=== PATIENT | female | born 1955 | race Caucasian/White ===

== ENCOUNTER 2019-10-10 13:51 | Emergency (ER) | payer OTHER ==
[~2019-10-10] VITALS: Ht 162.6 cm; Wt 90.9 kg
[2019-10-10 14:09] VITALS: BP 170/74
[2019-10-10] MEDS ORDERED: VITAMINC1000TA (16:13)
[2019-10-10] MEDS ORDERED: ALAVERT10 M1 PO (16:13)
[2019-10-10] MEDS ORDERED: HCTZ12.5TAB PO (16:14)
[2019-10-10] MEDS ORDERED: DITROPAN XL10 MG PO (16:14)
[2019-10-10] MEDS ORDERED: TIROSINT112 MC1 PO (16:15)
[2019-10-10 16:34] LABS: BASO # 0.1 (0.0-0.2); BASO % 0.7 % (0.0-2.0); EOS # 0.2 (0.0-0.7); EOS % 2.5 % (0-4.0); GRAN # 4.6 (1.4-6.5); GRAN % 62.5 % (42.2-75.2); HEMATOCRIT 44.2 % (37.0-47.0); HEMOGLOBIN 15.2 g/dl (12.5-16.0); LYMPH # 1.8 (1.2-3.4); LYMPH % 25.2 % (20.0-51.0); MEAN CELL VOLUME 87 fl (80.0-100.0); MEAN CORPUSCULAR HEMOGLOBIN 30 pg (27.0-31.0); MEAN CORPUSCULAR HGB CONC 34 g/dl (33.0-37.0); MEAN PLATELET VOLUME 10.5 fl (7.4-10.4); MONO # 0.6 (0.1-0.6); MONO % 8.4 % (1.7-9.3); PLATELET COUNT 256 K/mm3 (130-400); RED BLOOD COUNT 5.08 M/mm3 (4.10-5.30); REDCELL DISTRIBUTION WIDTH-CV 12.2 % (11.5-14.5)
[2019-10-10 16:49] LABS: ALBUMIN 4.9 gm/dL (3.5-5.0); BILIRUBIN,TOTAL 0.9 mg/dL (0.0-1.0); C-REACTIVE PROTEIN 1.3 mg/dL (0.0-0.9); CALCIUM 9.6 mg/dL (8.4-10.2); CREATININE, serum 0.71 (0.52-1.25); POTASSIUM 3.9 mmol/L (3.4-5.0); TOTAL PROTEIN 8.6 gm/dL (6.4-8.2)
[2019-10-10 18:14] LABS: COLLECTION METHOD CLEAN CATCH
[2019-10-10] MEDS ORDERED: ZOFRAN ODT4 MG PO (18:20)
[2019-10-10 18:44] LABS: PH 7 (5-8); SQUAMOUS EPITHELIAL 0-2 /hpf; URINE APPEARANCE Clear; URINE BACTERIA None Seen /hpf; URINE BILIRUBIN Negative (NEGATIVE); URINE BLOOD 1+ (NEGATIVE); URINE COLOR Yellow; URINE GLUCOSE Negative (NEGATIVE); URINE KETONE Negative (NEGATIVE); URINE LEUKOCYTE ESTERASE Negative (NEGATIVE); URINE NITRATE Negative (NEGATIVE); URINE PROTEIN(semi-quant) Negative (NEGATIVE); URINE UROBILINOGEN Negative (NEGATIVE)
[2019-10-10] MEDS ORDERED: PRILOSEC 20MG20 MG PO (19:00)
[2019-10-10 19:31] VITALS: PULSE 70; TEMP 98.4
== END 2019-10-10 19:28 | disposition home or self-care (01) ==
LOC: COL.ER 13:51
PROVIDERS: Emergency Medicine
DX: K29.00 Acute gastritis without bleeding (principal); Z87.442 Personal history of urinary calculi
CPT/HCPCS: J2405; J2550; J7030